=== PATIENT | male | born 1980 | race Asian ===

== ENCOUNTER 2017-05-24 00:11 | Emergency (ER) | payer OTHER ==
[~2017-05-24] VITALS: Ht 172.7 cm; Wt 111.1 kg
== END 2017-05-24 01:23 | disposition home or self-care (01) ==
LOC: ED 00:11
DX: I10 Essential (primary) hypertension (principal)
CPT/HCPCS: 99283

== ENCOUNTER 2017-09-18 10:12 | Emergency (ER) | payer OTHER ==
[~2017-09-18] VITALS: Ht 172.7 cm; Wt 117.9 kg
== END 2017-09-18 11:06 | disposition home or self-care (01) ==
LOC: ED 10:12
DX: I10 Essential (primary) hypertension (principal); Z91.14 Patient's other noncompliance with medication regimen; H60.92 Unspecified otitis externa, left ear
CPT/HCPCS: 99282

== ENCOUNTER 2018-09-10 15:50 | Emergency (ER) | payer OTHER ==
[~2018-09-10] VITALS: Ht 172.7 cm; Wt 120.2 kg
[2018-09-10 16:33] LABS: PLATELET COUNT 287 K/uL (142-355)
[2018-09-10 16:40] LABS: SODIUM 140 mmol/L (136-145)
[2018-09-10 21:09] VITALS: BP 168/97; TEMP 97.8
== END 2018-09-10 21:15 | disposition home or self-care (01) ==
LOC: ED 15:50
PROVIDERS: Family Medicine
DX: R07.89 Other chest pain (principal); M94.0 Chondrocostal junction syndrome [Tietze]; R10.12 Left upper quadrant pain
CPT/HCPCS: 36415; 80053; 80307; 81000; 82550; 82553; 84484; 85027; 93005; 96374; 96375; 99284; J1885; J2930; Q9963

== ENCOUNTER 2018-12-14 22:10 | Emergency (ER) | payer OTHER ==
[~2018-12-14] VITALS: Ht 172.7 cm; Wt 127.0 kg
[2018-12-14 22:21] VITALS: BP 152/107
== END 2018-12-14 23:26 | disposition home or self-care (01) ==
LOC: ED 22:10
DX: R10.9 Unspecified abdominal pain (principal)
CPT/HCPCS: 99281

== ENCOUNTER 2022-07-15 08:10 | Emergency (ER) | payer OTHER ==
[~2022-07-15] VITALS: Ht 172.7 cm; Wt 144.2 kg
[2022-07-15 08:10] VITALS: TEMP 98.1
[2022-07-15 08:53] LABS: PLATELET COUNT 248 K/uL (142-355)
[2022-07-15 08:59] LABS: POTASSIUM 4.1 mmol/L (3.6-5.2)
[2022-07-15 09:11] LABS: PARTIAL THROMBOPLASTIN TIME 26.5 SECONDS (24.5-33.6)
[2022-07-15 11:00] VITALS: BP 166/104
== END 2022-07-15 11:20 | disposition short-term general hospital (02) ==
LOC: ED 08:13
PROVIDERS: Internal Medicine
DX: G45.8 Other transient cerebral ischemic attacks and related syndromes (principal)
CPT/HCPCS: 80053; 82550; 84484; 85027; 85610; 85730; 93005; 99284